=== PATIENT | female | born 1955 | race Two or more races ===

== ENCOUNTER 2017-10-08 16:00 | Outpatient (CLI) | payer OTHER | END 2017-10-08 16:16 | disposition home or self-care (01) | LOC: RAD 501 16:00 | DX: M12.9 Arthropathy, unspecified (principal); M19.90 Unspecified osteoarthritis, unspecified site; M46.47 Discitis, unspecified, lumbosacral region ==

== ENCOUNTER 2018-02-12 10:02 | Outpatient (CLI) | payer OTHER | END 2018-02-12 11:09 | disposition home or self-care (01) | LOC: LAB 10:02 | DX: D50.0 Iron deficiency anemia secondary to blood loss (chronic) (principal); E78.2 Mixed hyperlipidemia; M06.9 Rheumatoid arthritis, unspecified; Z80.9 Family history of malignant neoplasm, unspecified; M15.9 Polyosteoarthritis, unspecified; Z12.11 Encounter for screening for malignant neoplasm of colon; E55.9 Vitamin D deficiency, unspecified; E03.9 Hypothyroidism, unspecified ==

== ENCOUNTER → 2021-02-15 09:51 | Outpatient (CLI) | payer OTHER | END | disposition home or self-care (01) | LOC: LAB 09:51 | PROVIDERS: ATTEND Internal Medicine Pulmonary Disease | DX: J43.2 Centrilobular emphysema (principal); R91.1 Solitary pulmonary nodule; J98.11 Atelectasis; Z87.891 Personal history of nicotine dependence; E66.01 Morbid (severe) obesity due to excess calories; A15.0 Tuberculosis of lung; B39.4 Histoplasmosis capsulati, unspecified; R06.02 Shortness of breath ==

== ENCOUNTER 2021-04-05 08:04 | Outpatient (CLI) | payer OTHER | END 2021-04-05 08:05 | disposition home or self-care (01) | LOC: NUCLEAR 08:04 | PROVIDERS: ATTEND Internal Medicine Cardiovascular Disease | DX: C34.91 Malignant neoplasm of unspecified part of right bronchus or lung (principal); C34.92 Malignant neoplasm of unspecified part of left bronchus or lung; C85.88 Other specified types of non-Hodgkin lymphoma, lymph nodes of multiple sites | CPT/HCPCS: 78815; A9552 ==

== ENCOUNTER 2024-11-12 10:18 | Outpatient (CLI) | payer OTHER | END 2024-11-12 10:19 | disposition home or self-care (01) | LOC: NUCLEAR 10:18 | PROVIDERS: ATTEND Internal Medicine | DX: I70.203 Unspecified atherosclerosis of native arteries of extremities, bilateral legs (principal) ==